=== PATIENT | male | born 2005 | race African-American/Black ===

== ENCOUNTER 2024-05-12 02:23 | Emergency (ER) | payer MEDICAID ==
[~2024-05-12] VITALS: Ht 175.3 cm; Wt 70.0 kg
[2024-05-12 02:34] VITALS: BP 115/70; PULSE 72; RESP 16; TEMP 97.7; O2SAT 100
[2024-05-12 02:46] LABS: COVID AG,FIA SOURCE NASAL SWAB
[2024-05-12 03:00] LABS: INFLUENZA TYPE A NEGATIVE FOR TYPE A (NEGATIVE); INFLUENZA TYPE B NEGATIVE FOR TYPE B (NEGATIVE)
[2024-05-12 03:01] LABS: SARS-COV2 (COVID) ANTIGEN,FIA Negative (Negative)
[2024-05-12] MEDS ORDERED: CETI1TAB45 PO (03:09)
== END 2024-05-12 03:15 | disposition home or self-care (01) ==
LOC: EMS 02:24
DX: R09.81 Nasal congestion (principal); Z20.822 Contact with and (suspected) exposure to COVID-19
CPT/HCPCS: 87804; 99283

== ENCOUNTER 2024-09-05 15:25 | Emergency (ER) | payer SELFPAY ==
[~2024-09-05] VITALS: Ht 175.3 cm; Wt 61.3 kg
[~2024-09-05 15:25] MED LIST: CETI1TAB45 PO
[2024-09-05 18:00] LABS: HEMATOCRIT 45.2 % (41-53); MEAN CORPUSCULAR HGB CONC 33.2 G/dL (31.0-37.0); MEAN CORPUSCULAR VOLUME 81 fL (80-100); PLATELET COUNT (AUTO) 170 K/uL (150-450); RED BLOOD CELL COUNT(AUTO) 5.55 MIL/uL (4.50-5.90)
[2024-09-05 18:10] LABS: ANION GAP 5 mmol/L (8-16); CALCIUM, TOTAL 8.8 mg/dL (8.8-10.5); CARBON DIOXIDE 29 mmol/L (22-29); CHLORIDE 104 mmol/L (98-107); CREATININE 1.15 mg/dL (0.60-1.30); GLOMERULAR FILTR. RATE CALC > 60 mL/min (>60); GLUCOSE,RANDOM 69 mg/dL (70-110); POTASSIUM 3.9 mmol/L (3.5-5.1); SODIUM SERUM 138 mmol/L (136-145); UREA NITROGEN, BLOOD 10 mg/dL (7-18)
[2024-09-05 18:14] LABS: ALANINE AMINOTRANSFERASE 20 U/L (12-78); ALBUMIN 3.8 g/dL (3.4-5.0); ALKALINE PHOSPHATASE 59 U/L (46-116); ASPARTATE AMINOTRANSFERASE 17 U/L (15-37); BILIRUBIN,TOTAL 0.5 mg/dL (0.1-1.0); CREATINE KINASE, TOTAL ONLY 113 U/L (39-308); TOTAL PROTEIN, SERUM 6.9 g/dL (6.4-8.2)
[2024-09-05 18:19] LABS: B-TYPE NATRIURETIC PEPTIDE < 5 pg/mL (0-100); TROPONIN I-HIGH SENSITIVITY 8 ng/L (<76)
[2024-09-05 18:51] LABS: BAND NEUTROPHILS % (MANUAL) 0 % (0-5)
[2024-09-05 18:52] LABS: BASOPHILS % (MANUAL) 1 % (0-2); EOSINOPHILS % (MANUAL) 2 % (1-6); LYMPHOCYTES % (MANUAL) 38 % (22-44); MONOCYTES % (MANUAL) 11 % (2-9); SEGMENTED NEUTROPHILS % 48 % (40-70); TOTAL CELLS COUNTED 100
[2024-09-05 18:57] VITALS: BP 122/72; PULSE 68; RESP 18; TEMP 97.2; O2SAT 99
== END 2024-09-05 19:35 | disposition home or self-care (01) ==
LOC: EMS 15:25
DX: K29.70 Gastritis, unspecified, without bleeding (principal); K21.9 Gastro-esophageal reflux disease without esophagitis; F12.90 Cannabis use, unspecified, uncomplicated; R07.89 Other chest pain; R10.13 Epigastric pain; R06.02 Shortness of breath
CPT/HCPCS: 71045; 80048; 80076; 82550; 83880; 84484; 85025; 93005; 99285; 36415-L1; 36415-TC